=== PATIENT | male | born 1990 | race Caucasian/White ===

== ENCOUNTER 2018-02-06 16:44 | Emergency (ER) | payer SELFPAY ==
[2018-02-06] MEDS ORDERED: Diphtheria,Pertussis(Acell),Tetanus Vaccine 0.5 ML Syringe IM ONE (17:03)
[2018-02-06] MEDS ORDERED: Bacitracin Oint 1 GM U/D Packet TOP ONE (17:03)
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
[2018-02-06] MEDS ORDERED: Acetaminophen/HYDROcodone 325-5 MG Tab PO ONE (17:52)
[2018-02-06] MEDS ORDERED: Bacitracin Oint 1 GM U/D Packet ONE (18:00)
[2018-02-06] MEDS ORDERED: Bacitracin Oint 28.35 GM Tube TOP SCH (22:00)
--- NOTE | 2018-02-08 11:54 | CR ---
EXAM DATE: 02/06/18 PATIENT'S AGE: 27 Patient: ALEXANDRA TY Facility: [place], [place] Site . Site : 1990 Study: XRay Shoulder Right [id number]/21/2018 5:33:44 PM Ordering Physician: Doctor Quezada Final Report: HISTORY: Pain after injury. FINDINGS: Three views of the shoulder are provided. There is a known fracture of the distal clavicle which will be described separately on the clavicular study. No findings for scapular or humeral fracture. No arthritic change or dislocation is noted. Dictated by Sal Long MD @ Feb 06 2018 5:47PM (Electronic Signature) Report Signed by Proxy. JACY
--- NOTE | 2018-02-08 11:55 | CR ---
EXAM DATE: 02/06/18 PATIENT'S AGE: 27 Patient: ALEXANDRA TY Facility: [place], [place] Site . Site : 1990 Study: XRay Shoulder Right clavical [id number]/21/2018 5:34:19 PM Ordering Physician: Doctor Quezada Final Report: HISTORY: Pain after injury. FINDINGS: There is a comminuted fracture of the distal clavicle without intra-articular extension distally. There is overriding of the for the proximal and distal fragments by approximately the width of the shaft with the proximal medial fragment seen in a superior direction. The acromioclavicular joint is normally aligned. Dictated by Sal Long MD @ Feb 06 2018 5:42PM (Electronic Signature) Report Signed by Proxy. JACY
--- NOTE | 2018-02-08 11:58 | CR ---
EXAM DATE: 02/06/18 PATIENT'S AGE: 27 Patient: ALEXANDRA TY Facility: [place], [place] Site . Site : 1990 Study: XRay Chest [id number]/21/2018 5:37:36 PM Ordering Physician: Doctor Quezada Final Report: HISTORY: Head and right shoulder injuries. Bleeding from right ear. FINDINGS: Two views of the chest are provided. The lungs are normally expanded and clear. No pleural effusion or pneumothorax is seen. Cardiac silhouette size is within normal limits. There is a fracture of the distal right clavicle. Dictated by Sal Long MD @ Feb 06 2018 5:48PM (Electronic Signature) Report Signed by Proxy. JACY
== END 2018-02-06 18:20 | disposition home or self-care (01) ==
LOC: MW.ED 16:44
DX: S42.034A Nondisplaced fracture of lateral end of right clavicle, initial encounter for closed fracture (principal); S01.01XA Laceration without foreign body of scalp, initial encounter; S40.211A Abrasion of right shoulder, initial encounter; S09.90XA Unspecified injury of head, initial encounter; Z23 Encounter for immunization; V29.9XXA Motorcycle rider (driver) (passenger) injured in unspecified traffic accident, initial encounter
CPT/HCPCS: 12002; 71046; 73000; 73030; 90471; 90715; 99283; A9270